=== PATIENT | female | born 1940 | race Caucasian/White ===

== ENCOUNTER 2019-07-31 05:34 | Emergency (ER) | payer MEDICARE, BC ==
--- NOTE | 2019-07-31 08:37 | RADIOLOGY REPORT (SQ) ---
EXAM DESCRIPTION: KUB/ABDOMEN (SINGLE VIEW) COMPLETED DATE/TIME: 07/31/2019 8:27 am REASON FOR STUDY: constipation abd distention COMPARISON: None. NUMBER OF VIEWS: One view. TECHNIQUE: Supine radiographic image of the abdomen acquired. LIMITATIONS: None. FINDINGS: BOWEL GAS PATTERN: Diffuse bowel dilation, particularly of the colon. CALCIFICATIONS: No suspicious calcifications. SOFT TISSUES: No gross mass or suggestion of organomegaly. HARDWARE: None in the abdomen. BONES: No acute fracture. No worrisome bone lesions. OTHER: No other significant finding. IMPRESSION: DIFFUSE COLONIC DILATION. TECHNICAL DOCUMENTATION: JOB ID: [id number] [employer]- All Rights Reserved Reading location - IP/workstation name: [email or web address]
[2019-07-31] MEDS ORDERED: NORMAL SALINE 250 ML IV ONE (09:05)
[2019-07-31] MEDS ORDERED: NORMAL SALINE 1000 ML 1,000 ML IV ONE (09:06)
[2019-07-31] MEDS ORDERED: FENTANYL CITRATE INJ/PF 100 MCG/2 ML AMPUL IV ONE ×3 (09:08→19:40)
[2019-07-31] MEDS ORDERED: ONDANSETRON HCL INJ/PF 4 MG/2 ML SDV IV ONE ×3 (09:08→14:57)
--- NOTE | 2019-07-31 09:12 | ER Document Report ---
ED General - General Chief Complaint: Constipation Stated Complaint: BLOATED Time Seen by Provider: 07/31/19 08:36 Primary Care Provider: LYUDMILA COLLIER MD [Primary Care Provider] - Follow up as needed Notes: 79 year old female with h/o htn and hld is here with no bowel movement in about a week but + flatus. She relates about a 6 month history of abd pain and bloating and intermittent constipation. Abd surgery at age 7 - appy. Only abd surgery. Denies fever or urinary symptoms. No known h/o liver disease. Drinks "a cocktail" each evening. - HPI Onset: Last week Onset/Duration: Gradual Quality of pain: Achy, Burning, Cramping Severity: Moderate Pain Level: 3 Associated symptoms: Nausea Exacerbated by: Denies - Related Data Allergies/Adverse Reactions: No Known Allergies Allergy (Unverified 10/14/13 13:25) Home Medications: Lovastatin. Amlodine Besylate. Lisinopril. HCTZ Past Medical History - Social History Smoking Status: Never Smoker Frequency of alcohol use: Occasional Family History: Reviewed & Not Pertinent Patient has suicidal ideation: No Patient has homicidal ideation: No - Past Medical History Cardiac Medical History: Reports: Hx Hypertension - ON MEDS Denies: Hx Heart Attack Pulmonary Medical History: Denies: Hx Asthma Neurological Medical History: Denies: Hx Cerebrovascular Accident, Hx Seizures GI Medical History: Denies: Hx Hepatitis, Hx Hiatal Hernia, Hx Ulcer Infectious Medical History: Denies: Hx Hepatitis Past Surgical History: Denies: Hx Hysterectomy, Hx Mastectomy, Hx Open Heart Surgery, Hx Pacemaker Review of Systems - Review of Systems Constitutional: No symptoms reported EENT: No symptoms reported Cardiovascular: No symptoms reported Respiratory: No symptoms reported Gastrointestinal: See HPI, Abdomen distended Genitourinary: No symptoms reported Female Genitourinary: No symptoms reported Musculoskeletal: No symptoms reported Skin: No symptoms reported Hematologic/Lymphatic: No symptoms reported Neurological/Psychological: No symptoms reported Physical Exam - Vital signs Vitals: Temp Pulse Resp BP Pulse Ox 98.1 F 75 22 H 135/74 H 97 07/31/19 05:38 07/31/19 05:38 07/31/19 05:38 07/31/19 05:38 07/31/19 05:38 Interpretation: Normal - General General appearance: Appears well, Alert - HEENT Head: Normocephalic, Atraumatic Eyes: Normal Pupils: PERRL - Respiratory Respiratory status: No respiratory distress Chest status: Nontender Breath sounds: Normal Chest palpation: Normal - Cardiovascular Rhythm: Regular Heart sounds: Normal auscultation Murmur: No - Abdominal Inspection: Other - distended. No: Normal Distension: Distended, Tympanitic. No: No distension Bowel sounds: Hyperactive Tenderness: Tender. No: Nontender - diffusely tender with peritonits. Organomegaly: No organomegaly - Back Back: Normal, Nontender - Extremities General upper extremity: Normal inspection, Nontender, Normal color, Normal ROM, Normal temperature General lower extremity: Normal inspection, Nontender, Normal color, Normal ROM, Normal temperature, Normal weight bearing. No: Gulshan's sign - Neurological Neuro grossly intact: Yes Cognition: Normal Orientation: AAOx4 [place] Coma Scale Eye Opening: Spontaneous [place] Coma Scale Verbal: Oriented Ran Coma Scale Motor: Obeys Commands [place] Coma Scale Total: 15 Speech: Normal Motor strength normal: LUE, RUE, LLE, RLE Sensory: Normal - Psychological Associated symptoms: Normal affect, Normal mood - Skin Skin Temperature: Warm Skin Moisture: Dry Skin Color: Normal Course - Re-evaluation Re-evalutation: 07/31/19 13:23 MDM 79 year old with volvulos and colonic obstruction. I have consulted GI here. Dr. Riddle has seen the pt, reviewed the scan and feels endoscopy availability is important for this pt emergently and we do not have that available here. 07/31/19 13:43 I have discussed this pt with the hospitalist at [facility] and they rec surgery as first call. The transfer center is calling general surgery and they will call us back. - Vital Signs Vital signs: Temp Pulse Resp BP Pulse Ox 98.2 F 68 16 126/64 H 94 07/31/19 10:51 07/31/19 10:51 07/31/19 10:51 07/31/19 10:51 07/31/19 10:51 - Laboratory Result Diagrams: 07/31/19 09:20 07/31/19 09:20 Laboratory results interpreted by me: 07/31/19 07/31/19 07/31/19 09:20 09:20 10:25 MCV 98 H Lymph % (Auto) 9.4 L Seg Neutrophils % 80.4 H Potassium 2.9 L* Chloride 94 L Carbon Dioxide 32 H Glucose 117 H Urine Ketones 20 H Urine Urobilinogen 2.0 H Ur Leukocyte Esterase TRACE H - Diagnostic Test Radiology reviewed: Image reviewed, Reports reviewed Critical Care Note - Critical Care Note Total time excluding time spent on procedures (mins): 30 Discharge - Discharge Clinical Impression: Volvulus of sigmoid colon, Hypokalemia Condition: Fair Disposition: Critical Access Hospital Referrals: LYUDMILA COLLIER MD [Primary Care Provider] - Follow up as needed
[2019-07-31 09:58] LABS: ALBUMIN 4.3 g/dL (3.5-5.0); ALKALINE PHOSPHATASE 78 U/L (38-126); ANION GAP 13 (5-19); ASPARTATE AMINO TRANSFERASE 36 U/L (14-36); BILIRUBIN,DIRECT 0.1 mg/dL (0.0-0.4); BLOOD UREA NITROGEN 13 mg/dL (7-20); CALCIUM 9.9 mg/dL (8.4-10.2); CARBON DIOXIDE 32 mmol/L (22-30); CHLORIDE 94 mmol/L (98-107); GLUCOSE 117 mg/dL (75-110); TOTAL PROTEIN 7.7 g/dL (6.3-8.2)
[2019-07-31 09:59] LABS: ABSOLUTE LYMPHOCYTES (AUTO) 0.7 10^3/uL (0.5-4.7); ABSOLUTE MONOCYTES (AUTO) 0.7 10^3/uL (0.1-1.4); ABSOLUTE NEUT (AUTO) 5.7 10^3/uL (1.7-8.2); BASOPHILS % (AUTO) 0.3 % (0-2); HEMATOCRIT 41.8 % (36.0-47.0); HEMOGLOBIN 14.3 g/dL (12.0-15.5); LYMPHOCYTES % (AUTO) 9.4 % (13-45); MEAN CORPUSCULAR HEMOGLOBIN 33.4 pg (27.0-33.4); MEAN CORPUSCULAR HGB CONC 34.2 g/dL (32.0-36.0); MEAN CORPUSCULAR VOLUME 98 fl (80-97); MONOCYTES % (AUTO) 9.9 % (3-13); PLATELET COUNT 237 10^3/uL (150-450); RED BLOOD COUNT 4.28 10^6/uL (3.72-5.28); RED CELL DISTRIBUTION WIDTH 13.2 % (11.5-14.0); SEGMENTED NEUTROPHILS % (AUTO) 80.4 % (42-78); TOTAL CELLS COUNTED % (AUTO) 100 %
[2019-07-31 10:00] LABS: POTASSIUM 2.9 mmol/L (3.6-5.0)
[2019-07-31 10:51] LABS: APPEARANCE,URINE SLIGHTLY-CLOUDY; BILIRUBIN,URINE NEGATIVE (NEGATIVE); COLOR,URINE YELLOW; GLUCOSE, URINE NEGATIVE (NEGATIVE); KETONES,URINE 20 mg/dL (NEGATIVE); LEUKOCYTE ESTERASE,URINE TRACE (NEGATIVE); NITRITE,URINE NEGATIVE (NEGATIVE); PROTEIN,URINE NEGATIVE (NEGATIVE); URINE SPECIFIC GRAVITY 1.018
--- NOTE | 2019-07-31 12:36 | RADIOLOGY REPORT (SQ) ---
EXAM DESCRIPTION: CT ABD/PELVIS WITH IV ORAL COMPLETED DATE/TIME: 07/31/2019 11:52 am REASON FOR STUDY: abd pain COMPARISON: KUB 07/31/2019 TECHNIQUE: CT scan of the abdomen and pelvis performed using helical scanning technique with dynamic intravenous contrast injection. Patient drank oral contrast. Images reviewed with lung, soft tissue , and bone windows. Reconstructed coronal and sagittal MPR images reviewed. Delayed images for evalua tion of the urinary system also acquired. All images stored on PACS. All CT scanners at this facility use dose modulation, iterative reconstruction, and/or weight based d osing when appropriate to reduce radiation dose to as low as reasonably achievable (ALARA). [facility]: Dose Right [facility]: CareDose [facility]: Dose Right [facility]: Teradose 4D [facility]: [employer] CONTRAST TYPE AND DOSE: contrast/concentration: Isovue 350.00 mg/ml; Total Contrast Delivered: 81.0 ml; Total Saline Delivered: 68.0 ml RENAL FUNCTION: Creatinine 0.66 RADIATION DOSE: CT Rad equipment meets quality standard of care and radiation dose reduction techniq ues were employed. CTDIvol: 6.3 - 8.0 mGy. DLP: 813 mGy-cm.. LIMITATIONS: None. FINDINGS: There is massive colonic distention with air related to a sigmoid volvulus. Twist in the sigmoid mesentery and colonic obstruction is evident on axial series 3, image 51-73. Volvulus is al so evident on coronal images 34-44. This report was called to Dr Agatha harris in the emergency room, 1 215 hours 07/31/2019. No free intraperitoneal air. No free fluid. Oral contrast is present in nondistended stomach and sm all bowel. LOWER CHEST: Bibasilar atelectasis. Moderate size retrocardiac hiatal hernia. LIVER: Normal size. No masses. No dilated ducts. SPLEEN: Normal size. No focal lesions. PANCREAS: No masses. No significant calcifications. No adjacent inflammation or peripancreatic fluid collections. Pancreatic duct not dilated. GALLBLADDER: No identified stones by CT criteria. No inflammatory changes to suggest cholecystitis. ADRENAL GLANDS: No significant masses or asymmetry. RIGHT KIDNEY AND URETER: No solid masses. No significant calcifications. No hydronephrosis or hyd roureter. LEFT KIDNEY AND URETER: No solid masses. No significant calcifications. No hydronephrosis or hydr oureter. AORTA AND VESSELS: No aneurysm. No dissection. Renal arteries, SMA, celiac without stenosis. RETROPERITONEUM: No retroperitoneal adenopathy, hemorrhage or masses. BOWEL AND PERITONEAL CAVITY: As above APPENDIX: Not identified PELVIS: No mass. No free fluid. Normal bladder. Postmenopausal female pelvic organs ABDOMINAL WALL: No masses. No hernias. BONES: No significant or acute findings. OTHER: No other significant finding. IMPRESSION: Sigmoid volvulus with colon obstruction. Findings called to the emergency room attendin heather physician COMMENT: Pertinent findings on the imaging study reported as a CRITICAL RESULT to MARIN Camp t12:15 on 07/31/2019. Category of Critical Result: Colon obstruction from sigmoid volvulus TECHNICAL DOCUMENTATION: JOB ID: [id number] Quality ID # [id number]: Final reports with documentation of one or more dose reduction techniques (e.g., Au tomated exposure control, adjustment of the mA and/or kV according to patient size, use of iterative reconstruction technique) 2010 [employer]- All Rights Reserved Reading location - IP/workstation name: [email or web address]
--- NOTE | 2019-07-31 13:20 | PDOC CONSULTATION ---
Consultation Consult Date: 07/31/19 Provider Consulted: BUCKY FERGUSON Consult reason:: Evaluate sigmoid volvulus History of Present Illness Admission Date/PCP: LYUDMILA COLLIER MD Patient complains of: Abdominal distention History of Present Illness: BRISEIDA HOGAN is a 79 year old female presenting with a several month history of constipation. Patient has noticed in the last 2 days acute onset of a severe abdominal distention. She has had a poor appetite but denies any nausea or vomiting. She has not had a bowel movement for several days. Uncertain whether she has been passing any gas. She has some crampy abdominal discomfort. No fever. No prior history of volvulus. Only past abdominal surgery was appendectomy as a child. There is no family history of colon cancer. Patient herself has never had a colonoscopy in the past. Past Medical History Cardiac Medical History: Reports: Hypertension - ON MEDS Denies: Myocardial Infarction Pulmonary Medical History: Denies: Asthma Neurological Medical History: Denies: Seizures GI Medical History: Denies: Hepatitis, Hiatal Hernia Hematology: Denies: Anemia, Sickle Cell Disease Past Surgical History Past Surgical History: Reports: Appendectomy, Other - Left ankle surgery Denies: Amputation, Hysterectomy, Mastectomy, Pacemaker Social History Smoking Status: Never Smoker Frequency of Alcohol Use: Heavy - Drinks a cocktail every night for a number of years. Hx Recreational Drug Use: No Drugs: None Family History Parental Family History Reviewed: Yes - Mother with ovarian cancer. Children Family History Reviewed: Yes Sibling(s) Family History Reviewed.: Yes Medication/Allergy Home Medications: Amlodipine Besylate [Norvasc 5 mg Tablet] 5 mg PO DAILY 10/14/13 Benazepril/Hydrochlorothiazide [Lotensin Hct 20-12.5 Tablet] 1 tab PO DAILY 10/14/13 Lovastatin [Mevacor] 40 mg PO DAILY 10/14/13 Allergies/Adverse Reactions: No Known Allergies Allergy (Unverified 10/14/13 13:25) Physical Exam Vital Signs: Temp Pulse Resp BP Pulse Ox 98.2 F 68 16 126/64 H 94 07/31/19 10:51 07/31/19 10:51 07/31/19 10:51 07/31/19 10:51 07/31/19 10:51 Intake & Output 11/30/19 12/01/19 12/02/19 06:59 06:59 06:59 Intake Total 250 Balance 250 Weight 69.5 kg General appearance: PRESENT: no acute distress, cooperative Eye exam: PRESENT: conjunctiva pink Respiratory exam: PRESENT: clear to auscultation alfredo Cardiovascular exam: PRESENT: irregular rhythm - Frequent premature beats., systolic murmur GI/Abdominal exam: PRESENT: other - Distended and somewhat tight, very minimal diffuse abdominal tenderness with no peritoneal signs. Hyperactive bowel sounds Neurological exam: PRESENT: alert, awake Psychiatric exam: PRESENT: appropriate affect Skin exam: PRESENT: warm Results Laboratory Results: 07/31/19 09:20 07/31/19 09:20 07/31/19 07/31/19 07/31/19 09:20 09:20 09:20 WBC 7.0 RBC 4.28 Hgb 14.3 Hct 41.8 MCV 98 H MCH 33.4 MCHC 34.2 RDW 13.2 Plt Count 237 Seg Neutrophils % 80.4 H Sodium 138.5 Potassium 2.9 L* Chloride 94 L Carbon Dioxide 32 H Anion Gap 13 BUN 13 Creatinine 0.66 Est GFR ( Amer) > 60 Glucose 117 H Lactic Acid Calcium 9.9 Magnesium 2.0 Total Bilirubin 1.0 AST 36 Alkaline Phosphatase 78 Total Protein 7.7 Albumin 4.3 Lipase 74.3 Urine Color Urine Appearance Urine pH Ur Specific [place] Urine Protein Urine Glucose (UA) Urine Ketones Urine Blood Urine Nitrite Ur Leukocyte Esterase Urine WBC (Auto) Urine RBC (Auto) 07/31/19 07/31/19 10:25 10:25 WBC RBC Hgb Hct MCV MCH MCHC RDW Plt Count Seg Neutrophils % Sodium Potassium Chloride Carbon Dioxide Anion Gap BUN Creatinine Est GFR ( Amer) Glucose Lactic Acid 1.1 Calcium Magnesium Total Bilirubin AST Alkaline Phosphatase Total Protein Albumin Lipase Urine Color YELLOW Urine Appearance SLIGHTLY-CLOUDY Urine pH 6.0 Ur Specific [place] 1.018 Urine Protein NEGATIVE Urine Glucose (UA) NEGATIVE Urine Ketones 20 H Urine Blood NEGATIVE Urine Nitrite NEGATIVE Ur Leukocyte Esterase TRACE H Urine WBC (Auto) 3 Urine RBC (Auto) 0 Impressions: KUB X-Ray 07/31/19 00:00 IMPRESSION: DIFFUSE COLONIC DILATION. Abdomen/Pelvis CT 07/31/19 09:06 IMPRESSION: Sigmoid volvulus with colon obstruction. Findings called to the emergency room attending physician Assessment & Plan - Diagnosis (1) Volvulus of sigmoid colon Is this a current diagnosis for this admission?: Yes Plan: Without evidence of ischemia. In this setting, I recommend endoscopic detorsion followed by semi-elective sigmoid colon resection. Unfortunately we do not have interventional gastroenterology on-call to do the detorsion procedure at our hospital. I have recommended to the patient transfer to a center with gastroenterology to perform the detorsion followed by allowing time for colon to decompress and do a bowel prep prior to the semi-elective sigmoid colon resection. I feel strongly that this is the preferred approach for this patient and the most likely chance of avoiding a colostomy. I have discussed my recommendation with the ER physician who will make arrangements for transfer. Patient is stable for transfer. I do recommend an NG tube for decompression.
[2019-07-31] MEDS ORDERED: PHARMACY COMMUNICATION ORDER MC NR (13:30)
--- NOTE | 2019-07-31 14:34 | RADIOLOGY REPORT (SQ) ---
EXAM DESCRIPTION: KUB/ABDOMEN (SINGLE VIEW) COMPLETED DATE/TIME: 07/31/2019 2:19 pm REASON FOR STUDY: Check Placement of NG Tube COMPARISON: 07/31/2019. NUMBER OF VIEWS: One view. TECHNIQUE: Supine radiographic image of the abdomen acquired. LIMITATIONS: None. FINDINGS: BOWEL GAS PATTERN: Colonic dilation, unchanged. CALCIFICATIONS: No suspicious calcifications. SOFT TISSUES: No gross mass or suggestion of organomegaly. HARDWARE: Nasogastric tube, distal end in the stomach. BONES: No acute fracture. No worrisome bone lesions. OTHER: No other significant finding. IMPRESSION: NASOGASTRIC TUBE IN APPROPRIATE POSITION. OTHERWISE NO CHANGE. TECHNICAL DOCUMENTATION: JOB ID: [id number] [employer]- All Rights Reserved Reading location - IP/workstation name: [email or web address]
[2019-07-31] MEDS ORDERED: RINGERS SOLUTION,LACTATED 1,000 ML IV ONE ×2 (14:37→16:59)
[2019-07-31] MEDS ORDERED: RINGERS SOLUTION,LACTATED 1,000 ML with POTASSIUM CHLORIDE 40 MEQ IV PRN ×2 (14:38)
[2019-07-31] MEDS ORDERED: MORPHINE SULFATE 10 MG/ML INJ IV ONE (14:57)
[2019-07-31] MEDS: POTASSI CL 20 MEQ/50 ML RIDER 20 MEQ/50 ML RTUPB IV SCH ×2 (17:21→19:01)
[2019-07-31 20:51] VITALS: BP 123/66
== END 2019-07-31 20:46 | disposition short-term general hospital (02) ==
LOC: ER 05:34
DX: K56.2 Volvulus (principal); E87.6 Hypokalemia; R11.0 Nausea; R10.9 Unspecified abdominal pain; R10.817 Generalized abdominal tenderness; I10 Essential (primary) hypertension; Z79.899 Other long term (current) drug therapy
CPT/HCPCS: 96376; 99285; 96361; 96375; 96365; 96366; 36415; 83605; 83690; 83735; 85025; 80053; 81001; 74018; 74177; J3010; J2270; J2405; J3480; J7030; J7050; J7120

== ENCOUNTER 2019-11-06 12:25 | Emergency (ER) | payer MEDICARE, BC ==
--- NOTE | 2019-11-06 12:47 | ER Document Report ---
ED Medical Screen (RME) - General Chief Complaint: Other Stated Complaint: STOMACH PAIN Time Seen by Provider: 11/06/19 12:39 Primary Care Provider: LYUDMILA COLLIER MD [Primary Care Provider] - Follow up as needed Mode of Arrival: Ambulatory Information source: Patient Notes: 79-year-old female presented to ED for concern of her 2019. She went to the shower this morning and when she got out it was out. She states she is not having any pain or discomfort but the home health nurse states she needed to come in and be evaluated to make sure there was no other changes. Patient is alert oriented respirations regular nonlabored speaking in full sentences. The reason for her colostomy was a volvulus and twisted colon. I have greeted and performed a rapid initial assessment of this patient. A comprehensive ED assessment and evaluation of the patient, analysis of test results and completion of medical decision making process will be conducted by an additional ED providers. - Related Data Allergies/Adverse Reactions: No Known Allergies Allergy (Unverified 10/14/13 13:25) Past Medical History - Past Medical History Cardiac Medical History: Reports: Hx Hypertension - ON MEDS Denies: Hx Heart Attack Pulmonary Medical History: Denies: Hx Asthma Neurological Medical History: Denies: Hx Cerebrovascular Accident, Hx Seizures GI Medical History: Denies: Hx Hepatitis, Hx Hiatal Hernia, Hx Ulcer Infectious Medical History: Denies: Hx Hepatitis Past Surgical History: Reports: Hx Appendectomy, Other - Left ankle surgery. Denies: Hx Hysterectomy, Hx Mastectomy, Hx Open Heart Surgery, Hx Pacemaker Physical Exam - Vital signs Vitals: Temp Pulse Resp BP Pulse Ox 98.3 F 82 18 152/63 H 98 11/06/19 12:32 11/06/19 12:32 11/06/19 12:32 11/06/19 12:32 11/06/19 12:32 Course - Vital Signs Vital signs: Temp Pulse Resp BP Pulse Ox 98.3 F 82 18 152/63 H 98 11/06/19 12:32 11/06/19 12:32 11/06/19 12:32 11/06/19 12:32 11/06/19 12:32 Doctor's Discharge - Discharge Referrals: LYUDMILA CLOLIER MD [Primary Care Provider] - Follow up as needed
--- NOTE | 2019-11-06 13:34 | ER Document Report ---
HPI - HPI Patient complains to provider of: Concerned about colostomy Time Seen by Provider: 11/06/19 13:30 Quality of pain: No pain Pain Level: Denies Context: Patient states that she noticed that her stoma to her colostomy was protruding more today than usual. Patient had colostomy placed 10/12/2019. Patient denies any pain to the abdomen. Patient denies any change in discharge. Patient denies any nausea or vomiting. Associated Symptoms: None Exacerbated by: Denies Relieved by: Denies Similar symptoms previously: No Recently seen / treated by doctor: No - ROS ROS below otherwise negative: Yes Systems Reviewed and Negative: Yes All other systems reviewed and negative - CONSTITUTIONAL Constitutional: DENIES: Fever - NEURO Neurology: DENIES: Weakness - GASTROINTESTINAL Gastrointestinal: DENIES: Abdominal Pain, Nausea, Patient vomiting, Diarrhea, Constipation - MUSCULOSKELETAL Musculoskeletal: DENIES: Extremity pain, Back Pain - DERM Skin Color: Normal Skin Problems: None Past Medical History - General Information source: Patient - Social History Smoking Status: Never Smoker Frequency of alcohol use: Occasional Drug Abuse: None Occupation: None Family History: Reviewed & Not Pertinent Patient has suicidal ideation: No Patient has homicidal ideation: No - Past Medical History Cardiac Medical History: Reports: Hx Hypercholesterolemia, Hx Hypertension Denies: Hx Heart Attack Neurological Medical History: Denies: Hx Cerebrovascular Accident, Hx Seizures Infectious Medical History: Denies: Hx Hepatitis Past Surgical History: Reports: Hx Abdominal Surgery - colostomy 2019, Hx Appendectomy, Hx Orthopedic Surgery - L ankle, Other - Left ankle surgery Vertical Provider Document - CONSTITUTIONAL Agree With Documented VS: Yes Exam Limitations: No Limitations General Appearance: WD/WN, No Apparent Distress - INFECTION CONTROL TRAVEL OUTSIDE OF THE [place] IN LAST 30 DAYS: No - HEENT HEENT: Atraumatic, Normocephalic - NECK Neck: Normal Inspection, Supple - RESPIRATORY Respiratory: Breath Sounds Normal, No Respiratory Distress - CARDIOVASCULAR Cardiovascular: Regular Rate, Regular Rhythm - GI/ABDOMEN Gastrointestinal: Abdomen Soft, Abdomen Non-Tender Notes: Patient's stoma appears to be mildly protuberant - MUSCULOSKELETAL/EXTREMETIES Musculoskeletal/Extremeties: MAEW - NEURO Level of Consciousness: Awake, Alert, Appropriate Motor/Sensory: No Motor Deficit - DERM Integumentary: Warm, Dry Course - Re-evaluation Re-evalutation: 11/06/19 13:31 Patient placed in mild Trendelenburg position, stoma protuberance reduced on its own, patient denies any discomfort. Patient encouraged to use splinting pillow for any activities that involve increased intra-abdominal pressure. Patient encouraged to follow-up with her surgeon for recheck. - Vital Signs Vital signs: Temp Pulse Resp BP Pulse Ox 98.3 F 82 18 152/63 H 98 11/06/19 12:32 11/06/19 12:32 11/06/19 12:32 11/06/19 12:32 11/06/19 12:32 Discharge - Discharge Clinical Impression: Concern about colostomy appearance Condition: Stable Disposition: HOME, SELF-CARE Additional Instructions: Return immediately for any new or worsening symptoms Followup with your primary care provider, call tomorrow to make a followup appointment Follow-up with your general surgeon for recheck, call Thursday for an appointment Referrals: LYUDMILA COLLIER MD [Primary Care Provider] - Follow up as needed
[2019-11-06 13:41] VITALS: BP 131/58
== END 2019-11-06 13:40 | disposition home or self-care (01) ==
LOC: ER 12:25
DX: Z43.3 Encounter for attention to colostomy (principal); I10 Essential (primary) hypertension
CPT/HCPCS: 99283